=== PATIENT | female | born 1985 | race Caucasian/White ===

== ENCOUNTER → 2025-01-23 15:52 | Outpatient (CLI) | payer OTHER, SELFPAY ==
--- NOTE | 2025-01-23 15:53 | DI.US.S_ITS ---
PROCEDURE: US OB FOLLOW UP INDICATIONS: LOW LYING PLACENTA OUTSIDE/PRIOR DATING DATA: Working [facility] of 03/08/2025. TECHNIQUE: Real-time scanning was performed of the fetus, with image documentation. Endovaginal scanning: Performed COMPARISON: [facility], , OB >= 14 WEEKS FETUS, 10/23/2024, 14:09. FINDINGS: A single living intrauterine gestation is present. Presentation: Vertex. Placenta: Placental position is posterior, without previa. Amniotic fluid index: 11.9 cm, normal range is 5-24 cm. Single deepest vertical pocket is 5.5 cm. heart rate: 139 beats per minute. Maternal cervical canal: 3.9 cm long. Normal lower limit is 2.5 cm. Clinically estimated gestational age: 33 weeks, 5 days No evidence of low lying placenta. The inferior edge is approximately 3.6 cm from the internal cervical os. IMPRESSION: 1. Single live intrauterine consistent with 33 weeks and 5 days. 2. No evidence of low lying placenta. Dictated by: Darius Alvarez M.D. on 01/23/2025 at 17:41 Approved by: Darius Alvarez M.D. on 01/23/2025 at 17:45
== END ==
PROVIDERS: Referring Provider Nurse Practitioner Obstetrics & Gynecology; Visit Provider Nurse Practitioner Obstetrics & Gynecology
DX: O44.43 Low lying placenta NOS or without hemorrhage, third trimester (principal); Z3A.33 33 weeks gestation of pregnancy
CPT/HCPCS: 76816; 76817